=== PATIENT | female | born 2000 | race Caucasian/White ===

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

== ENCOUNTER 2020-09-18 15:54 | Emergency (ER) | payer OTHER ==
[~2020-09-18 15:54] MED LIST: BACTRIM DS TAB1 EAC1 PO; FLEXERIL5 MG PO; IBUPROFEN800 MG PO; MEDROL 4MG DOSEP4 MG PO; PREDNISONE 20MG20 MG PO; PROTONIX 40MG T40 MG PO; TESSALON PERLE100 MG PO; ZOFRAN4 MG SL; ZPAK PO
[2020-09-18 17:27] LABS: BILIRUBIN 1+ mg/dL (NEGATIVE); BLOOD NEGATIVE Ery/uL (NEGATIVE); CLARITY HAZY (CLEAR); COLOR YELLOW (YELLOW); GLUCOSE (U) NORMAL (NORMAL); LEUKOCYTES NEGATIVE Leu/uL (NEGATIVE); NITRITE NEGATIVE (NEGATIVE); PROTEIN NEGATIVE (NEGATIVE); SPECIFIC GRAVITY >=1.030 (1.001-1.030); UROBILINOGEN 0.2 mg/dL (0.2-1.0); pH 5.5 (5.0-9.0)
[2020-09-18 17:51] LABS: BASOPHIL 0.4 % (0-2); EOSINOPHIL 0.8 % (0-5); HCT 42.2 % (37.0-47.0); LYMPHOCYTE 31.5 % (15-48); MCH 29.2 pg (25.0-31.0); MCHC 33.2 g/dL (32.0-36.0); MCV 88.1 fL (78.0-100.0); MONOCYTE 6.9 % (0-12); MPV 10.4 fL (6.0-9.5); NEUTROPHIL 60.2 % (41-80); NRBC 0; PLT 268 K/uL (150-400); RBC 4.79 M/uL (4.20-5.40); RDW 13.1 % (11.5-14.0); WBC 10.3 K/uL (4.0-10.5)
[2020-09-18 18:08] LABS: ALBUMIN 3.9 g/dL (3.4-5.0); BILIRUBIN - TOTAL 0.3 mg/dL (0.2-1.0); BUN/CREAT RATIO (CALC) 9.5 RATIO; CREATININE 0.74 mg/dL (0.51-0.95); GLOBULIN (CALCULATION) 3.2 g/dL; POTASSIUM 3.4 mmol/L (3.5-5.1); TOTAL PROTEIN 7.1 g/dL (6.4-8.2)
[2020-09-21 19:07] LABS: CHLAMYDIA TRACHOMATIS, NAA Negative (Negative); NEISSERIA GONORRHOEAE, NAA Negative (Negative)
== END 2020-09-18 20:42 | disposition home or self-care (01) ==
LOC: FER 15:54
PROVIDERS: Physician Assistant
DX: O20.0 Threatened abortion (principal); Z98.890 Other specified postprocedural states; Z87.42 Personal history of other diseases of the female genital tract; Z3A.01 Less than 8 weeks gestation of pregnancy
CPT/HCPCS: 36415; 76801; 80053; 81003; 83690; 84702; 85025; 87210; 87491; 87591; J7030

== ENCOUNTER 2020-10-06 08:21 | Emergency (ER) | payer OTHER ==
[2020-10-06 08:58] LABS: BASOPHIL 0.4 % (0-2); EOSINOPHIL 0.5 % (0-5); HCT 41.7 % (37.0-47.0); MCH 29.3 pg (25.0-31.0); MCHC 33.6 g/dL (32.0-36.0); MCV 87.2 fL (78.0-100.0); MONOCYTE 6.5 % (0-12); MPV 10.4 fL (6.0-9.5); NEUTROPHIL 69.2 % (41-80); NRBC 0; PLT 249 K/uL (150-400); RBC 4.78 M/uL (4.20-5.40); RDW 13.3 % (11.5-14.0); WBC 7.7 K/uL (4.0-10.5)
[2020-10-06 09:12] LABS: ALBUMIN 3.5 g/dL (3.4-5.0); BILIRUBIN - TOTAL 0.3 mg/dL (0.2-1.0); BUN/CREAT RATIO (CALC) 15.4 RATIO; CREATININE 0.65 mg/dL (0.51-0.95); GLOBULIN (CALCULATION) 3.2 g/dL; POTASSIUM 3.6 mmol/L (3.5-5.1); TOTAL PROTEIN 6.7 g/dL (6.4-8.2)
[2020-10-06 09:22] LABS: BILIRUBIN 1+ mg/dL (NEGATIVE); BLOOD NEGATIVE Ery/uL (NEGATIVE); CLARITY CLEAR (CLEAR); COLOR YELLOW (YELLOW); GLUCOSE (U) NORMAL (NORMAL); LEUKOCYTES NEGATIVE Leu/uL (NEGATIVE); NITRITE NEGATIVE (NEGATIVE); PROTEIN 1+ mg/dL (NEGATIVE); SPECIFIC GRAVITY >=1.030 (1.001-1.030); UROBILINOGEN 0.2 mg/dL (0.2-1.0)
[2020-10-06 09:29] LABS: SQUAMOUS EPITHELIAL CELLS 20-50
[2020-10-06 09:30] LABS: URINARY WBC 20-50
[2020-10-06 09:31] LABS: BACTERIA 1+; MUCOUS TRACE
[2020-10-06] MEDS ORDERED: VITAMIN B-650 MG PO (10:43)
[2020-10-06] MEDS ORDERED: UNISOM25 MG PO (10:43)
== END 2020-10-06 11:25 | disposition home or self-care (01) ==
LOC: FER 08:21
PROVIDERS: Emergency Medicine
DX: O21.0 Mild hyperemesis gravidarum (principal); O99.891 Other specified diseases and conditions complicating pregnancy; R42 Dizziness and giddiness; Z3A.08 8 weeks gestation of pregnancy
CPT/HCPCS: 36415; 80053; 81001; 85025; 87088; 93005; J1200; J7030

== ENCOUNTER 2020-10-29 08:39 | Emergency (ER) | payer OTHER ==
[~2020-10-29 08:39] MED LIST changes: +UNISOM25 MG PO; +VITAMIN B-650 MG PO
[2020-10-29 09:14] LABS: BILIRUBIN 1+ mg/dL (NEGATIVE); BLOOD NEGATIVE Ery/uL (NEGATIVE); CLARITY SLIGHTLY HAZY (CLEAR); COLOR YELLOW (YELLOW); GLUCOSE (U) NORMAL (NORMAL); LEUKOCYTES TRACE Leu/uL (NEGATIVE); NITRITE NEGATIVE (NEGATIVE); PROTEIN TRACE (LOW) mg/dL (NEGATIVE); SPECIFIC GRAVITY >=1.030 (1.001-1.030); UROBILINOGEN 0.2 mg/dL (0.2-1.0)
[2020-10-29 09:23] LABS: BACTERIA 2+
[2020-10-29 09:37] LABS: BASOPHIL 0.4 % (0-2); EOSINOPHIL 0.4 % (0-5); HCT 41.5 % (37.0-47.0); HGB 14.2 g/dl (12.5-16.0); LYMPHOCYTE 20.1 % (15-48); MCH 29.5 pg (25.0-31.0); MCHC 34.2 g/dL (32.0-36.0); MCV 86.3 fL (78.0-100.0); MONOCYTE 7.1 % (0-12); MPV 10.4 fL (6.0-9.5); NEUTROPHIL 71.5 % (41-80); NRBC 0; PLT 221 K/uL (150-400); RBC 4.81 M/uL (4.20-5.40); RDW 13.2 % (11.5-14.0); WBC 8.2 K/uL (4.0-10.5)
[2020-10-29 09:54] LABS: ALBUMIN 3.5 g/dL (3.4-5.0); BILIRUBIN - TOTAL 0.3 mg/dL (0.2-1.0); BUN/CREAT RATIO (CALC) 11.8 RATIO; CREATININE 0.68 mg/dL (0.51-0.95); GLOBULIN (CALCULATION) 3.8 g/dL; POTASSIUM 3.5 mmol/L (3.5-5.1); TOTAL PROTEIN 7.3 g/dL (6.4-8.2)
== END 2020-10-29 12:30 | disposition home or self-care (01) ==
LOC: FER 08:39
PROVIDERS: Emergency Medicine
DX: O21.9 Vomiting of pregnancy, unspecified (principal); O99.891 Other specified diseases and conditions complicating pregnancy; R10.84 Generalized abdominal pain; Z98.890 Other specified postprocedural states; Z3A.12 12 weeks gestation of pregnancy
CPT/HCPCS: 36415; 80053; 81001; 85025; 87088; 99284; J7030

== ENCOUNTER 2020-11-17 08:34 | Emergency (ER) | payer OTHER ==
[2020-11-17 10:17] LABS: BASOPHIL 0.4 % (0-2); EOSINOPHIL 0.6 % (0-5); HCT 38.9 % (37.0-47.0); HGB 13.3 g/dl (12.5-16.0); LYMPHOCYTE 22.7 % (15-48); MCH 29.7 pg (25.0-31.0); MCHC 34.2 g/dL (32.0-36.0); MCV 86.8 fL (78.0-100.0); MONOCYTE 5.1 % (0-12); MPV 10.3 fL (6.0-9.5); NEUTROPHIL 70.6 % (41-80); NRBC 0; PLT 231 K/uL (150-400); RBC 4.48 M/uL (4.20-5.40); RDW 13.2 % (11.5-14.0); WBC 8.1 K/uL (4.0-10.5)
[2020-11-17 10:37] LABS: BILIRUBIN NEGATIVE (NEGATIVE); BLOOD NEGATIVE Ery/uL (NEGATIVE); CLARITY CLEAR (CLEAR); COLOR YELLOW (YELLOW); GLUCOSE (U) NORMAL (NORMAL); LEUKOCYTES NEGATIVE Leu/uL (NEGATIVE); NITRITE NEGATIVE (NEGATIVE); PROTEIN TRACE (LOW) mg/dL (NEGATIVE); SPECIFIC GRAVITY >=1.030 (1.001-1.030); UROBILINOGEN 0.2 mg/dL (0.2-1.0)
[2020-11-17 10:40] LABS: ALBUMIN 3.2 g/dL (3.4-5.0); ALKALINE PHOSHATASE 56 U/L (46-116); ALT <6 U/L (14-59); AST 12 U/L (15-37); BILIRUBIN - TOTAL 0.2 mg/dL (0.2-1.0); BUN 9 mg/dL (7-18); CHLORIDE 102 mmol/L (98-107); CO2 (BICARBONATE) 25 mmol/L (21-32); CREATININE 0.69 mg/dL (0.51-0.95); GLUCOSE 78 mg/dL (74-106); LIPASE 62 U/L (73-393); MAGNESIUM 1.6 mg/dL (1.8-2.4); POTASSIUM 4.2 mmol/L (3.5-5.1); TOTAL PROTEIN 6.2 g/dL (6.4-8.2)
[2020-11-17 10:47] LABS: BACTERIA TRACE; MUCOUS MODERATE
[2020-11-17] MEDS ORDERED: ZOFRAN4 M1 PO (12:54)
== END 2020-11-17 13:42 | disposition home or self-care (01) ==
LOC: FER 08:34
PROVIDERS: Emergency Medicine
DX: O99.891 Other specified diseases and conditions complicating pregnancy (principal); R10.2 Pelvic and perineal pain; O21.9 Vomiting of pregnancy, unspecified; Z3A.14 14 weeks gestation of pregnancy
CPT/HCPCS: 36415; 76770; 76815; 80053; 81001; 83690; 83735; 84145; 84702; 85025; 87088; J1170; J2405; J7030

== ENCOUNTER 2020-12-03 11:01 | Emergency (ER) | payer OTHER ==
[~2020-12-03 11:01] MED LIST changes: +ZOFRAN4 M1 PO
[2020-12-03 11:37] LABS: BASOPHIL 0.4 % (0-2); EOSINOPHIL 0.9 % (0-5); HCT 37.2 % (37.0-47.0); HGB 12.9 g/dl (12.5-16.0); LYMPHOCYTE 27.1 % (15-48); MCH 29.9 pg (25.0-31.0); MCHC 34.7 g/dL (32.0-36.0); MCV 86.1 fL (78.0-100.0); MONOCYTE 5.5 % (0-12); MPV 10.2 fL (6.0-9.5); NEUTROPHIL 65.8 % (41-80); NRBC 0; PLT 218 K/uL (150-400); RBC 4.32 M/uL (4.20-5.40); RDW 13.2 % (11.5-14.0); WBC 7.6 K/uL (4.0-10.5)
[2020-12-03 11:57] LABS: INR 0.98 (0.9-1.2); PROTHROMBIN TIME 12.3 SECONDS (11.4-13.6); PTT 27.2 SECONDS (22.2-34.7)
[2020-12-03 12:04] LABS: ALBUMIN 3.1 g/dL (3.4-5.0); BILIRUBIN - TOTAL 0.2 mg/dL (0.2-1.0); BUN/CREAT RATIO (CALC) 11.4 RATIO; CREATININE 0.7 mg/dL (0.51-0.95); GLOBULIN (CALCULATION) 3.1 g/dL; POTASSIUM 3.9 mmol/L (3.5-5.1); TOTAL PROTEIN 6.2 g/dL (6.4-8.2)
== END 2020-12-03 15:25 | disposition home or self-care (01) ==
LOC: FER 11:01
PROVIDERS: Emergency Medicine
DX: O99.891 Other specified diseases and conditions complicating pregnancy (principal); M94.0 Chondrocostal junction syndrome [Tietze]; Z3A.17 17 weeks gestation of pregnancy
CPT/HCPCS: 36415; 80053; 84484; 85025; 85610; 85730; 93005

== ENCOUNTER 2020-12-16 05:30 | Emergency (ER) | payer OTHER ==
[2020-12-16 06:27] LABS: BASOPHIL 0.4 % (0-2); HGB 12.5 g/dl (12.5-16.0); LYMPHOCYTE 35.9 % (15-48); MCH 30.1 pg (25.0-31.0); MCHC 34.7 g/dL (32.0-36.0); MCV 86.7 fL (78.0-100.0); NEUTROPHIL 54.3 % (41-80); NRBC 0; PLT 217 K/uL (150-400); RBC 4.15 M/uL (4.20-5.40); RDW 13.6 % (11.5-14.0)
[2020-12-16 06:36] LABS: ALBUMIN 2.7 g/dL (3.4-5.0); BILIRUBIN - TOTAL 0.2 mg/dL (0.2-1.0); BUN/CREAT RATIO (CALC) 8.6 RATIO; CREATININE 0.58 mg/dL (0.51-0.95); GLOBULIN (CALCULATION) 3.4 g/dL; MAGNESIUM 1.6 mg/dL (1.8-2.4); PHOSPHORUS 3.4 mg/dL (2.6-4.7); POTASSIUM 3.9 mmol/L (3.5-5.1); TOTAL PROTEIN 6.1 g/dL (6.4-8.2)
[2020-12-16 06:39] LABS: BILIRUBIN NEGATIVE (NEGATIVE); BLOOD TRACE-INTACT Ery/uL (NEGATIVE); CLARITY CLEAR (CLEAR); COLOR YELLOW (YELLOW); GLUCOSE (U) NORMAL (NORMAL); LEUKOCYTES NEGATIVE Leu/uL (NEGATIVE); NITRITE NEGATIVE (NEGATIVE); PROTEIN NEGATIVE (NEGATIVE); SPECIFIC GRAVITY 1.025 (1.001-1.030); UROBILINOGEN 0.2 mg/dL (0.2-1.0)
[2020-12-16 06:46] LABS: BACTERIA 2+
[2020-12-16 06:47] LABS: MUCOUS MODERATE; SQUAMOUS EPITHELIAL CELLS 20-50
== END 2020-12-16 08:25 | disposition home or self-care (01) ==
LOC: FER 05:30
PROVIDERS: Emergency Medicine Emergency Medical Services
DX: O21.9 Vomiting of pregnancy, unspecified (principal); Z3A.19 19 weeks gestation of pregnancy
CPT/HCPCS: 36415; 80053; 81001; 83735; 84100; 85025; J7120

== ENCOUNTER 2021-03-25 18:35 | Emergency (ER) | payer OTHER ==
[2021-03-25 20:06] LABS: BASOPHIL 0.2 % (0-2); HCT 34.8 % (37.0-47.0); HGB 11.7 g/dl (12.5-16.0); LYMPHOCYTE 27.1 % (15-48); MCH 28.3 pg (25.0-31.0); MCHC 33.6 g/dL (32.0-36.0); MCV 84.3 fL (78.0-100.0); MONOCYTE 7.2 % (0-12); MPV 10.7 fL (6.0-9.5); NEUTROPHIL 63.9 % (41-80); NRBC 0; PLT 236 K/uL (150-400); RBC 4.13 M/uL (4.20-5.40); RDW 13.4 % (11.5-14.0)
[2021-03-25 20:44] LABS: ALBUMIN 2.8 g/dL (3.4-5.0); BILIRUBIN - TOTAL 0.2 mg/dL (0.2-1.0); BUN/CREAT RATIO (CALC) 11.9 RATIO; CREATININE 0.59 mg/dL (0.51-0.95); GLOBULIN (CALCULATION) 3.4 g/dL; MAGNESIUM 1.7 mg/dL (1.8-2.4); POTASSIUM 3.8 mmol/L (3.5-5.1); TOTAL PROTEIN 6.2 g/dL (6.4-8.2)
[2021-03-25 21:31] LABS: BILIRUBIN 1+ mg/dL (NEGATIVE); BLOOD NEGATIVE Ery/uL (NEGATIVE); CLARITY CLEAR (CLEAR); COLOR YELLOW (YELLOW); GLUCOSE (U) NORMAL (NORMAL); LEUKOCYTES 1+ Leu/uL (NEGATIVE); NITRITE NEGATIVE (NEGATIVE); PROTEIN TRACE (LOW) mg/dL (NEGATIVE); SPECIFIC GRAVITY 1.025 (1.001-1.030); UROBILINOGEN 0.2 mg/dL (0.2-1.0); pH 6.5 (5.0-9.0)
[2021-03-25 21:50] LABS: BACTERIA 3+; SQUAMOUS EPITHELIAL CELLS 20-50; URINARY RBC RARE
[2021-03-25] MEDS ORDERED: KEFLEX250 MG PO (23:05)
== END 2021-03-25 23:22 | disposition home or self-care (01) ==
LOC: FER 18:35
PROVIDERS: Emergency Medicine
DX: O99.891 Other specified diseases and conditions complicating pregnancy (principal); R42 Dizziness and giddiness; Z20.822 Contact with and (suspected) exposure to COVID-19; Z98.890 Other specified postprocedural states; Z88.0 Allergy status to penicillin; Z3A.00 Weeks of gestation of pregnancy not specified
CPT/HCPCS: 36415; 71045; 80053; 81001; 83615; 83735; 83880; 84484; 85025; 93005; J3490; J7030; U0002

== ENCOUNTER 2021-04-07 13:01 | Emergency (ER) | payer OTHER ==
[~2021-04-07 13:01] MED LIST changes: +KEFLEX250 MG PO
[2021-04-07 13:54] LABS: BASOPHIL 0.3 % (0-2); EOSINOPHIL 0.8 % (0-5); HCT 35.1 % (37.0-47.0); HGB 11.3 g/dl (12.5-16.0); LYMPHOCYTE 23.1 % (15-48); MCH 27.8 pg (25.0-31.0); MCHC 32.2 g/dL (32.0-36.0); MCV 86.2 fL (78.0-100.0); MONOCYTE 8.1 % (0-12); MPV 10.3 fL (6.0-9.5); NRBC 0; PLT 207 K/uL (150-400); RBC 4.07 M/uL (4.20-5.40); RDW 13.7 % (11.5-14.0); WBC 7.5 K/uL (4.0-10.5)
[2021-04-07 14:21] LABS: ALBUMIN 2.5 g/dL (3.4-5.0); BILIRUBIN - TOTAL 0.2 mg/dL (0.2-1.0); BUN/CREAT RATIO (CALC) 8.5 RATIO; CREATININE 0.59 mg/dL (0.51-0.95); GLOBULIN (CALCULATION) 3.8 g/dL; POTASSIUM 4.1 mmol/L (3.5-5.1); TOTAL PROTEIN 6.3 g/dL (6.4-8.2)
[2021-04-07 14:52] LABS: CORONAVIRUS 2019 SARS-COV-2 NEGATIVE (NEGATIVE); INFLUENZA A NAA NEGATIVE (NEGATIVE)
== END 2021-04-07 16:11 | disposition home or self-care (01) ==
LOC: FER 13:01
PROVIDERS: Nurse Practitioner Family
DX: O98.513 Other viral diseases complicating pregnancy, third trimester (principal); B34.9 Viral infection, unspecified; Z20.822 Contact with and (suspected) exposure to COVID-19; Z3A.34 34 weeks gestation of pregnancy; Z98.890 Other specified postprocedural states
CPT/HCPCS: 36415; 80053; 85025; 99284; J7030; J7120; U0002

== ENCOUNTER 2021-04-28 14:23 | Inpatient (IN) | payer OTHER ==
[~2021-04-28] VITALS: Ht 170.2 cm; Wt 101.2 kg
[2021-04-28 15:22] LABS: BILIRUBIN NEGATIVE (NEGATIVE); BLOOD 1+ Ery/uL (NEGATIVE); CLARITY CLEAR (CLEAR); COLOR YELLOW (YELLOW); GLUCOSE (U) NORMAL (NORMAL); HCT 33.1 % (37.0-47.0); HGB 10.8 g/dl (12.5-16.0); LEUKOCYTES 1+ Leu/uL (NEGATIVE); MCH 27.2 pg (25.0-31.0); MCHC 32.6 g/dL (32.0-36.0); MCV 83.4 fL (78.0-100.0); MPV 10.7 fL (6.0-9.5); NITRITE NEGATIVE (NEGATIVE); PROTEIN TRACE (LOW) mg/dL (NEGATIVE); RBC 3.97 M/uL (4.20-5.40); RDW 13.6 % (11.5-14.0); SPECIFIC GRAVITY 1.025 (1.001-1.030); WBC 8.1 K/uL (4.0-10.5); pH 6.5 (5.0-9.0)
[2021-04-28 15:29] LABS: URINARY RBC 20-50
[2021-04-28 15:30] LABS: BACTERIA 3+
[2021-04-28 15:31] LABS: CALCIUM OXALATE CRYSTALS TRACE
[2021-04-28 15:48] LABS: PROTEIN:CREATININE 0.15 RATIO; URINE CREATININE 282.31 mg/dL (29.00-226.00); URINE TOTAL PROTEIN-RANDOM 43.3 mg/dL (<11.9)
[2021-04-28 15:52] LABS: ALBUMIN 2.4 g/dL (3.4-5.0); BILIRUBIN - TOTAL 0.2 mg/dL (0.2-1.0); BUN/CREAT RATIO (CALC) 14.5 RATIO; CREATININE 0.55 mg/dL (0.51-0.95); GLOBULIN (CALCULATION) 3.7 g/dL; POTASSIUM 3.9 mmol/L (3.5-5.1); TOTAL PROTEIN 6.1 g/dL (6.4-8.2)
[2021-04-29 13:14] LABS: BILIRUBIN NEGATIVE (NEGATIVE); BLOOD 3+ Ery/uL (NEGATIVE); CLARITY CLEAR (CLEAR); COLOR YELLOW (YELLOW); GLUCOSE (U) NORMAL (NORMAL); LEUKOCYTES NEGATIVE Leu/uL (NEGATIVE); NITRITE NEGATIVE (NEGATIVE); PROTEIN NEGATIVE (NEGATIVE); UROBILINOGEN 0.2 mg/dL (0.2-1.0)
[2021-04-29 13:47] LABS: URINARY RBC 20-50; URINARY WBC RARE
[2021-04-30 06:09] LABS: HCT 29.3 % (37.0-47.0); HGB 9.4 g/dl (12.5-16.0); MCH 27.3 pg (25.0-31.0); MCHC 32.1 g/dL (32.0-36.0); MCV 85.2 fL (78.0-100.0); MPV 10.8 fL (6.0-9.5); RBC 3.44 M/uL (4.20-5.40); RDW 13.9 % (11.5-14.0); WBC 10.8 K/uL (4.0-10.5)
[2021-05-01 05:37] LABS: BASOPHIL 0.3 % (0-2); EOSINOPHIL 1.7 % (0-5); HCT 28.1 % (37.0-47.0); HGB 8.8 g/dl (12.5-16.0); LYMPHOCYTE 25.4 % (15-48); MCHC 31.3 g/dL (32.0-36.0); MCV 86.2 fL (78.0-100.0); MONOCYTE 7.5 % (0-12); MPV 11.2 fL (6.0-9.5); NEUTROPHIL 64.5 % (41-80); NRBC 0; PLT 149 K/uL (150-400); RBC 3.26 M/uL (4.20-5.40); RDW 14.1 % (11.5-14.0); WBC 9.5 K/uL (4.0-10.5)
== END 2021-05-01 15:00 | disposition home or self-care (01) | DRG 787 ==
LOC: FOD 14:23 → FOB 14:24 → FOD 14:39 → FOB 05-01 15:00
PROVIDERS: Obstetrics & Gynecology; ADMIT Obstetrics & Gynecology
PROC: 10D00Z1 Extraction of Products of Conception, Low, Open Approach (ICD-10-PCS; principal; 2021-04-29 12:00)
DX: O13.4 Gestational [pregnancy-induced] hypertension without significant proteinuria, complicating childbirth (principal); D62 Acute posthemorrhagic anemia; Z37.0 Single live birth; O34.211 Maternal care for low transverse scar from previous cesarean delivery; O99.02 Anemia complicating childbirth; Z20.822 Contact with and (suspected) exposure to COVID-19; O99.344 Other mental disorders complicating childbirth; G40.909 Epilepsy, unspecified, not intractable, without status epilepticus; Z3A.37 37 weeks gestation of pregnancy; Z87.440 Personal history of urinary (tract) infections
CPT/HCPCS: 36415; 80053; 80305; 81001; 82570; 83615; 84156; 84550; 85025; 86850; 86900; 86901; 87880; J0690; J1200; J1885; J2274; J2370; J2405; J2916; J3010; J7120; U0002

== ENCOUNTER 2021-05-02 22:35 | Inpatient (IN) | payer OTHER ==
[2021-05-02 23:30] LABS: HCT 27.7 % (37.0-47.0); HGB 8.8 g/dl (12.5-16.0); MCH 27.7 pg (25.0-31.0); MCHC 31.8 g/dL (32.0-36.0); MCV 87.1 fL (78.0-100.0); MPV 10.5 fL (6.0-9.5); RBC 3.18 M/uL (4.20-5.40); RDW 14.5 % (11.5-14.0); WBC 7.2 K/uL (4.0-10.5)
[2021-05-02 23:48] LABS: ALBUMIN 2.3 g/dL (3.4-5.0); BILIRUBIN - TOTAL 0.3 mg/dL (0.2-1.0); BUN/CREAT RATIO (CALC) 13.6 RATIO; CREATININE 0.66 mg/dL (0.51-0.95); GLOBULIN (CALCULATION) 3.3 g/dL; TOTAL PROTEIN 5.6 g/dL (6.4-8.2)
[2021-05-03 00:33] LABS: BILIRUBIN NEGATIVE (NEGATIVE); BLOOD TRACE-INTACT Ery/uL (NEGATIVE); CLARITY CLEAR (CLEAR); COLOR YELLOW (YELLOW); GLUCOSE (U) NORMAL (NORMAL); LEUKOCYTES NEGATIVE Leu/uL (NEGATIVE); NITRITE NEGATIVE (NEGATIVE); PROTEIN NEGATIVE (NEGATIVE); UROBILINOGEN 0.2 mg/dL (0.2-1.0); pH 6.5 (5.0-9.0)
[2021-05-03 00:40] LABS: URINARY WBC RARE
== END 2021-05-04 20:17 | disposition home or self-care (01) | DRG 776 ==
LOC: FOD 22:35 → FOB 22:35 → FOD 22:46 → FOB 22:47
PROVIDERS: ADMIT Obstetrics & Gynecology
DX: O86.12 Endometritis following delivery (principal); O34.211 Maternal care for low transverse scar from previous cesarean delivery; Z20.822 Contact with and (suspected) exposure to COVID-19; O13.5 Gestational [pregnancy-induced] hypertension without significant proteinuria, complicating the puerperium; O99.03 Anemia complicating the puerperium; Z91.040 Latex allergy status; Z91.013 Allergy to seafood
CPT/HCPCS: 36415; 71045; 76856; 80048; 80053; 81001; 85025; 87040; 87088; 87449; 93970; 96367; J2543; J2916; J7030; J7120; U0002

== ENCOUNTER 2021-08-01 17:21 | Emergency (ER) | payer OTHER ==
[2021-08-01 18:25] LABS: BILIRUBIN NEGATIVE (NEGATIVE); BLOOD 2+ Ery/uL (NEGATIVE); CLARITY CLEAR (CLEAR); COLOR YELLOW (YELLOW); GLUCOSE (U) NORMAL (NORMAL); LEUKOCYTES NEGATIVE Leu/uL (NEGATIVE); NITRITE NEGATIVE (NEGATIVE); PROTEIN NEGATIVE (NEGATIVE); SPECIFIC GRAVITY 1.025 (1.001-1.030); UROBILINOGEN 0.2 mg/dL (0.2-1.0); pH 7.5 (5.0-9.0)
[2021-08-01 18:33] LABS: BACTERIA 2+; URINARY RBC RARE
[2021-08-01] MEDS ORDERED: MACROBID100 MG PO (23:05)
[2021-08-03 22:10] LABS: CHLAMYDIA TRACHOMATIS, NAA Negative (Negative); NEISSERIA GONORRHOEAE, NAA Negative (Negative)
== END 2021-08-01 23:28 | disposition home or self-care (01) ==
LOC: FER 17:21
PROVIDERS: Emergency Medicine
DX: N39.0 Urinary tract infection, site not specified (principal); Z20.2 Contact with and (suspected) exposure to infections with a predominantly sexual mode of transmission
CPT/HCPCS: 81001; 87088; 87210; 87491; 87591; 99283; J0696

== ENCOUNTER 2021-08-07 23:41 | Emergency (ER) | payer OTHER ==
[~2021-08-07 23:41] MED LIST changes: +MACROBID100 MG PO
[2021-08-08 01:13] LABS: BASOPHIL 0.6 % (0-2); EOSINOPHIL 2.6 % (0-5); HCT 41.6 % (37.0-47.0); HGB 13.7 g/dl (12.5-16.0); LYMPHOCYTE 37.6 % (15-48); MCH 27.7 pg (25.0-31.0); MCHC 32.9 g/dL (32.0-36.0); MCV 84.2 fL (78.0-100.0); MONOCYTE 8.7 % (0-12); MPV 9.9 fL (6.0-9.5); NEUTROPHIL 50.4 % (41-80); NRBC 0; PLT 275 K/uL (150-400); RBC 4.94 M/uL (4.20-5.40); RDW 14.1 % (11.5-14.0); WBC 7.3 K/uL (4.0-10.5)
[2021-08-08 01:40] LABS: ALBUMIN 3.5 g/dL (3.4-5.0); BILIRUBIN - TOTAL 0.1 mg/dL (0.2-1.0); BUN/CREAT RATIO (CALC) 15.4 RATIO; CREATININE 0.78 mg/dL (0.51-0.95); GLOBULIN (CALCULATION) 3.2 g/dL; TOTAL PROTEIN 6.7 g/dL (6.4-8.2)
[2021-08-08] MEDS ORDERED: CYCLOBENZAPRINE10 MG PO (02:12)
[2021-08-08] MEDS ORDERED: NORCO 5-325 TA1 EACH PO (02:12)
[2021-08-08] MEDS ORDERED: IBUPROFEN800 MG PO (02:12)
== END 2021-08-08 02:29 | disposition home or self-care (01) ==
LOC: FER 23:41
PROVIDERS: Emergency Medicine Emergency Medical Services
DX: M54.2 Cervicalgia (principal); R07.81 Pleurodynia; R51.9 Headache, unspecified; V47.5XXA Car driver injured in collision with fixed or stationary object in traffic accident, initial encounter; Y92.410 Unspecified street and highway as the place of occurrence of the external cause
CPT/HCPCS: 36415; 70450; 71045; 72125; 80053; 83690; 84484; 84703; 85025; 93005; J1885; J2060; J2800; J7050

== ENCOUNTER 2021-08-09 18:17 | Emergency (ER) | payer OTHER ==
[~2021-08-09 18:17] MED LIST changes: +CYCLOBENZAPRINE10 MG PO; +NORCO 5-325 TA1 EACH PO
[2021-08-09 20:56] LABS: CORONAVIRUS 2019 SARS-COV-2 NEGATIVE (NEGATIVE); INFLUENZA A NAA NEGATIVE (NEGATIVE)
== END 2021-08-10 00:29 | disposition left against medical advice (07) ==
LOC: FER 18:17
PROVIDERS: Internal Medicine
DX: M79.10 Myalgia, unspecified site (principal); R19.7 Diarrhea, unspecified; Z53.21 Procedure and treatment not carried out due to patient leaving prior to being seen by health care provider; Z20.822 Contact with and (suspected) exposure to COVID-19
CPT/HCPCS: 99281; U0002

== ENCOUNTER 2022-04-06 08:34 | Emergency (ER) | payer OTHER ==
[~2022-04-06 08:34] MED LIST changes: +PROCTOSOL-HC28.35 GM TOP
[2022-04-06 09:14] LABS: BASOPHIL 0.7 % (0-2); EOSINOPHIL 1.9 % (0-5); LYMPHOCYTE 26.5 % (15-48); MCHC 33.3 g/dL (32.0-36.0); MONOCYTE 7.4 % (0-12); MPV 10.1 fL (6.0-9.5); NEUTROPHIL 63.2 % (41-80); NRBC 0; PLT 244 K/uL (150-400); RBC 5.17 M/uL (4.20-5.40)
[2022-04-06 09:33] LABS: PROTEIN:CREATININE 0.1 RATIO; URINE CREATININE 187.11 mg/dL (29.00-226.00); URINE TOTAL PROTEIN-RANDOM 20.2 mg/dL (<11.9)
[2022-04-06 09:48] LABS: INR 0.97 (0.9-1.2); PROTHROMBIN TIME 12.6 SECONDS (11.9-13.9); PTT 26.4 SECONDS (24.9-34.6)
[2022-04-06 10:14] LABS: BILIRUBIN NEGATIVE (NEGATIVE); BLOOD NEGATIVE Ery/uL (NEGATIVE); CLARITY HAZY (CLEAR); COLOR YELLOW (YELLOW); GLUCOSE (U) NORMAL (NORMAL); LEUKOCYTES NEGATIVE Leu/uL (NEGATIVE); NITRITE NEGATIVE (NEGATIVE); PROTEIN NEGATIVE (NEGATIVE); SPECIFIC GRAVITY 1.015 (1.001-1.030); UROBILINOGEN 0.2 mg/dL (0.2-1.0); pH 7.5 (5.0-9.0)
[2022-04-06 10:38] LABS: ALBUMIN 3.6 g/dL (3.4-5.0); BILIRUBIN - TOTAL 0.3 mg/dL (0.2-1.0); BUN/CREAT RATIO (CALC) 12.1 RATIO; CREATININE 0.91 mg/dL (0.51-0.95); GLOBULIN (CALCULATION) 3.4 g/dL; POTASSIUM 3.6 mmol/L (3.5-5.1)
[2022-04-06 11:02] LABS: URIC ACID 3.5 mg/dL (2.6-6.2)
== END 2022-04-06 11:14 | disposition home or self-care (01) ==
LOC: FER 08:34
PROVIDERS: Emergency Medicine
DX: R51.9 Headache, unspecified (principal); R03.0 Elevated blood-pressure reading, without diagnosis of hypertension; Z28.310 Unvaccinated for COVID-19
CPT/HCPCS: 36415; 80053; 81003; 82570; 83615; 84156; 84550; 85025; 85610; 85730; 99284

== ENCOUNTER 2022-05-04 19:00 | Emergency (ER) | payer OTHER ==
[2022-05-04 19:40] LABS: HCT 42.8 % (37.0-47.0); HGB 14.5 g/dL (12.5-16.0)
== END 2022-05-04 20:45 | disposition home or self-care (01) ==
LOC: FER 19:00
PROVIDERS: Emergency Medicine
DX: N93.8 Other specified abnormal uterine and vaginal bleeding (principal); Z28.310 Unvaccinated for COVID-19
CPT/HCPCS: 36415; 84703; 85014; 85018; 99284